=== PATIENT | male | born 1985 | race African-American/Black ===

== ENCOUNTER 2019-04-13 17:31 | Emergency (ER) | payer OTHER ==
[~2019-04-13] VITALS: Ht 165.1 cm; Wt 83.9 kg
[2019-04-13] MEDS ORDERED: TRAMADOL 50 MG50 MG PO ×2 (18:28)
[2019-04-13] MEDS ORDERED: KEFLEX500 M1 PO ×2 (18:28)
[2019-04-13] MEDS ORDERED: PREDNISONE 20 M20 M1 PO ×2 (18:28)
[2019-04-13 18:33] VITALS: BP 144/78
== END 2019-04-13 18:35 | disposition home or self-care (01) ==
LOC: M.ERS 17:31
DX: M10.072 Idiopathic gout, left ankle and foot (principal); L03.115 Cellulitis of right lower limb; F17.210 Nicotine dependence, cigarettes, uncomplicated

== ENCOUNTER 2019-04-18 14:37 | Emergency (ER) | payer OTHER ==
[~2019-04-18] VITALS: Ht 165.1 cm; Wt 85.7 kg
[~2019-04-18 14:37] MED LIST: KEFLEX500 M1 PO; PREDNISONE 20 M20 M1 PO; TRAMADOL 50 MG50 MG PO
[2019-04-18 15:22] VITALS: BP 133/79
== END 2019-04-18 15:24 | disposition home or self-care (01) ==
LOC: M.ERS 14:37
DX: Z02.79 Encounter for issue of other medical certificate (principal)